=== PATIENT | male | born 1970 | race Caucasian/White ===

== ENCOUNTER 2022-01-14 19:07 | Emergency (ER) | payer BC ==
[~2022-01-14] VITALS: Ht 175.3 cm; Wt 95.7 kg
[2022-01-14 19:13] VITALS: BP_SYST 156
--- NOTE | 2022-01-14 19:13 | NUR ---
Placed in room 6 . Placed on campus monitor, blood pressure machine and pulse oximeter. To gown for exam. Side rails up. Report given to RACQUEL CLARK.
--- NOTE | 2022-01-14 19:17 | NUR ---
PATIENT BROUGHT IN COMPLAINING OF SUBSTERNAL PAIN STARTING AT 11 AM TODAY IN SHOWER. PATIENT DESCRIBES IT A CRAMP. PATIENT REPORTS HAS FAMILY HISTORY OF [place]. DENIES ANY CHEST PAIN, SOB, NAUSEA, VOMITING OR ABDOMINAL PAIN. PAIN 0/10. RESTING COMFORTABLY. VSS
--- NOTE | 2022-01-14 19:24 | NUR ---
ER at bedside examining patient.
[2022-01-14 20:09] LABS: BASOPHILS % (AUTO) 0.5 % (0.0-2.0); EOSINOPHILS # (AUTO) 0.1 K/uL (0.0-0.4); EOSINOPHILS % (AUTO) 1.7 % (0.0-4.0); HEMATOCRIT 48.4 % (36-54); HEMOGLOBIN 16.3 g/dL (14.0-18.0); LYMPHOCYTES # (AUTO) 2.1 K/uL (1.0-5.5); LYMPHOCYTES % (AUTO) 28.1 % (20.5-51.5); MEAN CORPUSCULAR HEMOGLOBIN 30 pg (27-31); MEAN CORPUSCULAR HGB CONC 34 % (32-36); MEAN CORPUSCULAR VOLUME 89 fL (79.0-98.0); MONOCYTES # (AUTO) 0.6 K/uL (0.0-1.0); NEUTROPHILS # (AUTO) 4.6 K/uL (1.8-7.7); NEUTROPHILS % (AUTO) 61.7 % (40.0-70.0); PLATELET COUNT (AUTO) 247 K/uL (130-430); RED BLOOD CELL COUNT(AUTO) 5.46 MIL/uL (4.2-6.2); RED CELL DISTRIBUTION WIDTH 13.1 % (9.0-15.0); WHITE BLOOD COUNT (AUTO) 7.5 K/uL (4.8-10.8)
[2022-01-14 20:18] LABS: CALCIUM 8.2 mg/dL (8.4-11.0); CREATININE 1.2 mg/dL (0.55-1.30); POTASSIUM 3.9 mmol/L (3.5-5.1)
[2022-01-14 20:26] LABS: TOTAL BILIRUBIN 0.2 mg/dL (0.0-1.0)
[2022-01-14 21:20] VITALS: BP_SYST 147
--- NOTE | 2022-01-14 21:20 | NUR ---
Patient given written and verbal discharge instructions and verbalizes understanding. ER MD discussed with patient the results and treatment provided. Patient in stable condition. ID arm band removed. IV catheter removed intact and dressing applied, no active bleeding. Patient educated on pain management and to follow up with PMD. Pain Scale . Opportunity for questions provided and answered.
== END 2022-01-14 21:20 | disposition home or self-care (01) ==
LOC: SED 19:07
DX: R07.89 Other chest pain (principal); Z88.8 Allergy status to other drugs, medicaments and biological substances
CPT/HCPCS: 36415; 71045; 80053; 84484; 85025; 93005; 99285

== ENCOUNTER 2022-07-18 23:41 | Emergency (ER) | payer BC ==
[~2022-07-18] VITALS: Ht 175.3 cm; Wt 90.7 kg
[2022-07-19] VITALS: BP_SYST 140
--- NOTE | 2022-07-19 00:11 | NUR ---
Patient to ER bed 5 to gown for evaluation. Side rails up. Report given to DOMINIQUE CLARK(reg).
--- NOTE | 2022-07-19 00:18 | NUR ---
Assuming care for pt at this time. Pt c/o cough x 4 days and sts he was seen in [facility] for same complain and was given meds (steroid and breathing tx) with no relief. Pt RR even, non labored. Afebrile . He reports being vaccinated with covid vaccine. PMH: Denies
--- NOTE | 2022-07-19 01:26 | NUR ---
ER at bedside examining patient.
[2022-07-19] MEDS ORDERED: LIDOCAINE MPF 2% 20 MG/1 ML, 5 ML VIAL INH ONE (01:30)
--- NOTE | 2022-07-19 01:47 | NUR ---
RT at the bedside for breathing tx.
--- NOTE | 2022-07-19 01:48 | NUR ---
Covid swab done and sent to lab.
[2022-07-19] MEDS ORDERED: LIDOCAINE VISCOUS 2%, 15 ML UDC MM ONE (02:30)
[2022-07-19] MEDS ORDERED: FLUTICASONE PROPIONATE 50 mCg/SPRAY 16 GM NS ONE (02:45)
[2022-07-19] MEDS ORDERED: LORATADINE 10 MG TABLET PO ONE (02:45)
[2022-07-19] MEDS ORDERED: IPRATROPIUM BROMIDE 17 mCg/ACTUATION, 12.9 GM AER.W.ADAP INH ONE (03:00)
[2022-07-19 03:23] VITALS: BP_SYST 132
[2022-07-19] MEDS ORDERED: FLUT16SP16 NS (03:23)
[2022-07-19] MEDS ORDERED: TRAZ150T77 PO (03:23)
[2022-07-19] MEDS ORDERED: IPRA12.9 INH (03:23)
[2022-07-19] MEDS ORDERED: LORA10TA64 PO (03:23)
== END 2022-07-19 03:23 | disposition home or self-care (01) ==
LOC: SED 23:41
DX: R05.9 Cough, unspecified (principal); R09.82 Postnasal drip; Z88.6 Allergy status to analgesic agent; Z88.8 Allergy status to other drugs, medicaments and biological substances; Z79.899 Other long term (current) drug therapy; Z20.822 Contact with and (suspected) exposure to COVID-19
CPT/HCPCS: 99283; 87426; 36415; 94640; J2001